=== PATIENT | female | born 1945 | race Caucasian/White ===

== ENCOUNTER 2020-06-12 11:45 | Inpatient (IN) | payer MEDICARE, BC ==
[~2020-06-12] VITALS: Ht 152.4 cm; Wt 67.1 kg
[~2020-06-12 11:45] MED LIST: DILT240C51 PO; FLEC100T2 PO; LEVO75TA PO; LOSA100T57 PO; RIVA15TA PO; SIMV-45 PO; TRAM50TA2 PO
[2020-06-14 13:15] LABS: BASOPHILS % (AUTO) 1.1 % (0-1); EOSINOPHILS # (AUTO) 0.1 X10'3 (0-0.9); EOSINOPHILS % (AUTO) 1.8 % (0-6); LYMPHOCYTES # (AUTO) 0.8 X10'3 (1.1-4.8); MEAN CORPUSCULAR HEMOGLOBIN 25.9 PG (27.0-31.0); MEAN CORPUSCULAR HGB CONC 31.6 g/dL (33.0-36.5); MEAN CORPUSCULAR VOLUME 82.2 FL (78-98); MEAN PLATELET VOLUME 8.1 FL (7.4-10.4); MONOCYTES # (AUTO) 0.3 X10'3 (0-0.9); MONOCYTES % (AUTO) 9.2 % (2-12); NEUTROPHILS # (AUTO) 2.4 X10'3 (1.8-7.7); NEUTROPHILS % (AUTO) 64.9 % (42-75); PRE OP HEMATOCRIT 23.1 % (35.0-45.0); PRE OP PLATELET COUNT 269 X10'3 (140-440); RED BLOOD COUNT 2.81 X10'6 (4.20-5.60); RED CELL DISTRIBUTION WIDTH 16.9 % (11.5-14.5)
[2020-06-14 13:17] LABS: PRE OP HEMOGLOBIN 7.3 g/dL (12.0-16.0)
[2020-06-14 13:35] LABS: ALANINE AMINOTRANSFERASE 13 U/L (12-78); ALBUMIN 3.2 G/DL (3.4-5.0); ALBUMIN/GLOBULIN RATIO 0.8 (1.1-1.5); ALKALINE PHOSPHATASE 76 IU/L (46-116); ANION GAP 11 (8-16); ASPARTATE AMINO TRANSFERASE 11 U/L (10-37); BILIRUBIN,TOTAL 0.4 MG/DL (0.1-1.0); BLOOD UREA NITROGEN 19 MG/DL (7-18); CALCIUM 8.9 MG/DL (8.5-10.1); CHLORIDE 109 MMOL/L (99-107); GLUCOSE 109 MG/DL (70-104); POTASSIUM 4.4 MMOL/L (3.5-5.1); SODIUM 143 MMOL/L (135-145); TOTAL CARBON DIOXIDE 23.4 MMOL/L (24-32); TOTAL PROTEIN 7.1 G/DL (6.4-8.2)
[2020-06-14 13:49] LABS: BUN/CREATININE RATIO 16.2 (6.6-38.0); CREATININE 1.17 MG/DL (0.40-0.90); eGFR 45 ML/MIN
[2020-06-14 15:36] LABS: ANISOCYTOSIS 1+; ELLIPTOCYTES 2+; PLATELET ESTIMATE NORMAL
[2020-06-14 15:37] LABS: SCHISTOCYTES FEW
[2020-06-19] VITALS (18 sets, daily range): BP systolic 113–169; BP diastolic 17–87
[2020-06-19] MEDS ORDERED: ringers solution, lacted 1,000 ML IV SCH ×2 (05:00→10:40)
[2020-06-19] MEDS ORDERED: tranexamic acid inj. 700 MG in normal saline 100ml IV soln 93 ML IV ONE ×2 (05:30→06:30)
[2020-06-19] MEDS ORDERED: famotidine 20mg tablet PO ONE (05:30)
[2020-06-19] MEDS ORDERED: VANCOMYCIN INJ 1000 MG in NORMAL SALINE 250ml IV.SOLN IV ONE (05:30)
[2020-06-19] MEDS ORDERED: tranexamic acid inj. 700 MG in normal saline 100ml IV soln 100 ML IV ONE ×3 (05:30→15:00)
[2020-06-19] MEDS ORDERED: MESSAGE TO NURSING IV ONE (06:00)
[2020-06-19 07:18] LABS: BASOPHILS # (AUTO) 0.1 X10'3 (0-0.2); BASOPHILS % (AUTO) 1.3 % (0-1); EOSINOPHILS # (AUTO) 0.1 X10'3 (0-0.9); EOSINOPHILS % (AUTO) 1.5 % (0-6); LYMPHOCYTES # (AUTO) 0.6 X10'3 (1.1-4.8); LYMPHOCYTES % (AUTO) 15.6 % (21-51); MEAN CORPUSCULAR HEMOGLOBIN 26.5 PG (27.0-31.0); MEAN CORPUSCULAR HGB CONC 32.4 g/dL (33.0-36.5); MEAN CORPUSCULAR VOLUME 81.6 FL (78-98); MEAN PLATELET VOLUME 8.4 FL (7.4-10.4); MONOCYTES # (AUTO) 0.4 X10'3 (0-0.9); MONOCYTES % (AUTO) 10.2 % (2-12); NEUTROPHILS # (AUTO) 2.7 X10'3 (1.8-7.7); NEUTROPHILS % (AUTO) 71.4 % (42-75); PRE OP HEMATOCRIT 22.5 % (35.0-45.0); PRE OP PLATELET COUNT 260 X10'3 (140-440); RED BLOOD COUNT 2.76 X10'6 (4.20-5.60); RED CELL DISTRIBUTION WIDTH 17.5 % (11.5-14.5)
[2020-06-19] MEDS ORDERED: clindamycin 600mg/D5W 50ml 50 ML IV ONE (07:20)
[2020-06-19 07:42] LABS: PRE OP HEMOGLOBIN 7.3 g/dL (12.0-16.0)
[2020-06-19] MEDS ORDERED: ketorolac trometh. 30mg/ml inj. ONE (08:24)
[2020-06-19] MEDS ORDERED: ROPIVAcaine 0.5% (5mg/ml) 30ml vial ONE (08:24)
[2020-06-19] MEDS ORDERED: sevoflurane 250ml liquid IH ONE (09:13)
[2020-06-19] MEDS ORDERED: fentaNYL /PF 50mcg/ml 5ml ampule ONE (09:23)
[2020-06-19] MEDS ORDERED: ondansetron/PF 4mg/2ml inj IV PRN ×2 (10:40→11:40)
[2020-06-19] MEDS ORDERED: morphine 2 MG/ML inj. syringe IV PRN (10:40)
[2020-06-19] MEDS ORDERED: HYDROmorphone inj. 0.5 MG/0.5 ML DISP.SYRIN IV PRN ×2 (10:40→11:40)
--- NOTE | 2020-06-19 11:35 | NUR ---
Received from OR via BED , accompanied by Anesthesiologist DR TAYLOR and report given by Anesthesiolgist. PATIENT WAKING UP, DENIES PAIN, V/S WNL, NEUROVASCULAR CHECKS INTACT, 20G PIV RUE , DRESSING TO LEFT SHOULDER CDI W/ COLD POWDER PACK AND SLING. F/C DRAINING CLEAR YELLOW URINE
[2020-06-19] MEDS ORDERED: bisacodyl 10mg suppository rectal RC PRN (11:40)
[2020-06-19] MEDS: potassium cl 20mEq in 1/2 NS 1,000 ML IV SCH ×2 (11:40→19:40)
[2020-06-19] MEDS ORDERED: acetaminophen 325mg tablet PO PRN (11:40)
[2020-06-19] MEDS ORDERED: diphenhydrAMINE 25mg capsule PO PRN ×2 (11:40)
[2020-06-19] MEDS ORDERED: magnesium hydroxide 30ml (MOM) UD suspension PO PRN (11:40)
[2020-06-19] MEDS ORDERED: dexamethasone sod phosphate 4mg/ml inj. ONE (11:42)
[2020-06-19] MEDS ORDERED: propofol inj 20 ML IV ONE (11:42)
[2020-06-19] MEDS ORDERED: neostigmine methylsulfate 1 MG/ML 10ml vial ONE (11:42)
[2020-06-19] MEDS ORDERED: LIDOcaine 2% (20mg/ml) 5ml vial ONE (11:42)
[2020-06-19] MEDS ORDERED: glycopyrrolate 0.2mg/ml inj ONE (11:42)
[2020-06-19] MEDS ORDERED: rocuronium 10mg/ml inj IV ONE (11:42)
[2020-06-19] MEDS ORDERED: ondansetron/PF 4mg/2ml inj ONE (11:42)
[2020-06-19 12:06] LABS: ISTAT CREATININE 1.1 mg/dL (0.6-1.1); ISTAT HGB 8.5 g/dl (12.0-16.0); ISTAT IONIZED CALCIUM 1.26 mmol/L (1.03-1.32); ISTAT K 4.1 mmol/L (3.5-5.1); POC BUN/CREATININE RATIO 13.6 (6.6-38.0)
[2020-06-19] MEDS: HYDROmorphone inj. 0.5 MG/0.5 ML DISP.SYRIN IV PRN ×2 (12:12→12:33)
--- NOTE | 2020-06-19 12:35 | NUR ---
PATIENT A&OX4, 5-6/10 PAIN SEE EMAR, V/S WNL, NEUROVASCULAR CHECKS INTACT, 20G PIV RUE , DRESSING TO LEFT SHOULDER CDI W/ COLD POWDER PACK AND SLING. F/C DRAINING CLEAR YELLOW URINE. . PATIENT TAKEN TO 4011B WITH ALL BELONGINGS AND HOOKED UP TO MONITORS IN ROOM AND REPORT GIVEN TO AUDIO VISUAL COORDINATOR WHO HAS TAKEN OVER PATIENT CARE.
[2020-06-19] MEDS: acetaminophen 325mg tablet PO SCH ×2 (12:51→20:53)
[2020-06-19] MEDS: oxyCODONE IR 5mg (immed. release) tablet PO PRN ×2 (12:52→21:38)
[2020-06-19] MEDS: traMADol 50MG tablet PO SCH ×2 (15:20→20:53)
[2020-06-19] MEDS: clindamycin 600mg/D5W 50ml 50 ML IV SCH ×2 (15:21→20:54)
[2020-06-19] MEDS ORDERED: vancomycin/NS 1 GM ADD-VANTAGE 250 ML IV SCH (20:00)
[2020-06-19] MEDS: flecainide 50mg tablet PO SCH (20:54)
[2020-06-19] MEDS ORDERED: atorvastatin 20mg tablet PO SCH (21:00)
[2020-06-19] MEDS ORDERED: sennosides 8.6mg tablet PO SCH (21:00)
[2020-06-20] MEDS: oxyCODONE IR 5mg (immed. release) tablet PO PRN ×2 (01:13→05:36)
[2020-06-20 02:00] VITALS: BP 150/69
[2020-06-20] MEDS: acetaminophen 325mg tablet PO SCH ×2 (02:12→07:30)
[2020-06-20] MEDS: traMADol 50MG tablet PO SCH ×2 (02:13→11:25)
[2020-06-20] MEDS: potassium cl 20mEq in 1/2 NS 1,000 ML IV SCH (03:40)
[2020-06-20 06:00] VITALS: BP 145/64
[2020-06-20 06:12] LABS: ANION GAP 10 (8-16); CHLORIDE 106 MMOL/L (99-107); SODIUM 138 MMOL/L (135-145)
[2020-06-20 06:13] LABS: BASOPHILS # (AUTO) 0.1 X10'3 (0-0.2); BASOPHILS % (AUTO) 1.3 % (0-1); EOSINOPHILS # (AUTO) 0.1 X10'3 (0-0.9); EOSINOPHILS % (AUTO) 0.9 % (0-6); LYMPHOCYTES # (AUTO) 0.8 X10'3 (1.1-4.8); LYMPHOCYTES % (AUTO) 9.1 % (21-51); MEAN CORPUSCULAR HEMOGLOBIN 26.7 PG (27.0-31.0); MEAN CORPUSCULAR HGB CONC 31.9 g/dL (33.0-36.5); MEAN CORPUSCULAR VOLUME 83.5 FL (78-98); MEAN PLATELET VOLUME 8.3 FL (7.4-10.4); MONOCYTES # (AUTO) 0.7 X10'3 (0-0.9); MONOCYTES % (AUTO) 8.6 % (2-12); NEUTROPHILS # (AUTO) 6.7 X10'3 (1.8-7.7); NEUTROPHILS % (AUTO) 80.1 % (42-75); PLATELET COUNT 271 X10'3 (140-440); RED CELL DISTRIBUTION WIDTH 17.2 % (11.5-14.5); WHITE BLOOD COUNT 8.3 X10'3 (4.5-11.0)
--- NOTE | 2020-06-20 06:27 | NUR ---
Received report from Yaa MONTANO
[2020-06-20 07:31] VITALS: BP_SYST 145
[2020-06-20] MEDS: flecainide 50mg tablet PO SCH (07:31)
[2020-06-20 07:36] LABS: TOTAL CELLS COUNTED 100
[2020-06-20 07:38] LABS: ANISOCYTOSIS 1+; PLATELET ESTIMATE NORMAL
[2020-06-20 07:51] LABS: ELLIPTOCYTES 2+; SCHISTOCYTES FEW
[2020-06-20 07:52] LABS: POLYCHROMASIA FEW
[2020-06-20] MEDS ORDERED: diltiazem CD 120mg capsule (once-daily) PO SCH (08:00)
[2020-06-20] MEDS ORDERED: rivaroxaban 15mg tablet PO SCH (08:00)
[2020-06-20] MEDS ORDERED: losartan 50mg tablet PO SCH (08:00)
[2020-06-20] MEDS ORDERED: levoTHYROXINE 75mcg tablet PO SCH (08:00)
--- NOTE | 2020-06-20 13:51 | NUR ---
Patient was discharged iv and tele was removed from patient. Patient left with . discharge instructions were given to patient.
[2020-06-21] MEDS ORDERED: acetaminophen 325mg tablet PO PRN (11:40)
--- NOTE | 2020-06-21 12:48 | NUR ---
Case Management DC follow up: spoke to pt via telephone. s/p: ORIF L proximal humerus. Reports:"feeling pretty good, still sore" Denies: acute/continuous CP, emergent SOB, resp distress, N/V, MCLEAN, blurry vision, vertigo, syncope episodes, weakness,emergent general pain, abd tenderness/distension, bladder pain, dysuria, polyuria, hematuria, retention, constipation, diarrhea, fever, unexplained bleeding, bruising. Verbalizes understanding of s/s that warrant 9-11/ER visit for further evaluation. Verbalizes understanding of Rx and why prescribed, resumes current Rx, taking as ordered, no ase r/t polypharmacy. Acknowledges need to schedule/keep follow up appts w/ PCP/Andreas, will call to schedule; Dr Cheung scheduled. [facility] pending. Verbalizes compliance w/DC aftercare. Needs met, questions answered at DC, no further questions or concerns at this time.
== END 2020-06-20 13:00 | disposition home health service (06) | DRG 493 ==
LOC: UNDOADMIN 06-19 05:33 → PAS IN 06-19 05:33 → EDSTATUS 06-19 08:15 → ORTHO 4S 06-19 11:40 → PAS IN 06-19 12:45
PROVIDERS: ADMIT Orthopaedic Surgery; ATTEND Orthopaedic Surgery
PROC: 30233N1 Transfusion of Nonautologous Red Blood Cells into Peripheral Vein, Percutaneous Approach (ICD-10-PCS; 2020-06-19)
PROC: 0PSG04Z Reposition Left Humeral Shaft with Internal Fixation Device, Open Approach (ICD-10-PCS; principal; 2020-06-19 09:13)
DX: S42.342A Displaced spiral fracture of shaft of humerus, left arm, initial encounter for closed fracture (principal); I48.20 Chronic atrial fibrillation, unspecified; D62 Acute posthemorrhagic anemia; E03.9 Hypothyroidism, unspecified; W06.XXXA Fall from bed, initial encounter; E78.5 Hyperlipidemia, unspecified; E66.9 Obesity, unspecified; I10 Essential (primary) hypertension; Z79.899 Other long term (current) drug therapy; Z79.01 Long term (current) use of anticoagulants; Z79.891 Long term (current) use of opiate analgesic; Z88.0 Allergy status to penicillin; Z68.28 Body mass index [BMI] 28.0-28.9, adult; Y93.89 Activity, other specified; Y92.89 Other specified places as the place of occurrence of the external cause; Y99.8 Other external cause status; Z03.818 Encounter for observation for suspected exposure to other biological agents ruled out
CPT/HCPCS: 36415; 71046; 73060; 76000; 80047; 80051; 80053; 82948; 84443; 85025; 86885; 86900; 86901; 86920; 87081; 93971; 97161; 97530; A4565; A4618; A6449; A7000; C1713; G0378; J1100; J1170; J1885; J2001; J2270; J2405; J2704; J2710; J2795; J3010; J3370; J3480; J3490; J7120; P9016

== ENCOUNTER 2023-11-05 03:55 | Inpatient (IN) | payer MEDICARE, BC ==
[~2023-11-05] VITALS: Ht 147.3 cm; Wt 54.5 kg
[~2023-11-05 03:55] MED LIST changes: -LOSA100T57 PO; +LOSA100T58 PO
[2023-11-05] MEDS ORDERED: normal saline 1000ml 1,000 ML IV ONE (04:20)
[2023-11-05] MEDS ORDERED: ondansetron/PF 4mg/2ml inj IV ONE (04:20)
[2023-11-05] MEDS ORDERED: morphine 4 MG/ML inj SYRINge IV ONE ×2 (04:20→06:00)
[2023-11-05 04:44] LABS: BILIRUBIN,URINE NEGATIVE (Neg); CLARITY,URINE SLIGHTLY CLOUDY (Clear); COLOR,URINE YELLOW (Yellow); GLUCOSE, URINE NEGATIVE (Neg); KETONES,URINE NEGATIVE (Neg); LEUKOCYTE ESTERASE ,URINE TRACE (Neg); NITRITES, URINE NEGATIVE (Neg); OCCULT BLOOD,URINE NEGATIVE (Neg); PROTEIN,URINE TRACE mg/dl (Neg); UROBILINOGEN,URINE 0.2 E.U/dL (0.2-1.0)
[2023-11-05 04:45] LABS: UA COLLECTION TYPE OTHER
[2023-11-05 04:54] LABS: MUCUS STRANDS NONE SEEN /LPF (Neg); SQUAMOUS EPITHELIAL CELL,UR MANY /LPF (FEW); TRANSITIONAL EPI CELLS,URINE MODERATE /HPF
[2023-11-05 04:56] LABS: BACTERIA,URINE 1+ /HPF (Neg); RBC,URINE 0-2 /HPF (0-2)
[2023-11-05 06:07] LABS: BASOPHILS % (AUTO) 0.7 % (0-1); EOSINOPHILS # (AUTO) 0.1 X10'3 (0-0.9); EOSINOPHILS % (AUTO) 1.7 % (0-6); HEMATOCRIT 27.2 % (35.0-45.0); HEMOGLOBIN 9.4 g/dl (12.0-16.0); LYMPHOCYTES # (AUTO) 0.5 X10'3 (1.1-4.8); LYMPHOCYTES % (AUTO) 11.8 % (21-51); MEAN CORPUSCULAR HEMOGLOBIN 33.4 PG (27.0-31.0); MEAN CORPUSCULAR HGB CONC 34.7 g/dL (33.0-36.5); MEAN CORPUSCULAR VOLUME 96.4 FL (78-98); MONOCYTES # (AUTO) 0.3 X10'3 (0-0.9); MONOCYTES % (AUTO) 7.4 % (2-12); NEUTROPHILS # (AUTO) 3.2 X10'3 (1.8-7.7); NEUTROPHILS % (AUTO) 78.4 % (42-75); PLATELET COUNT 127 X10'3 (140-440); RED BLOOD COUNT 2.82 X10'6 (4.20-5.60); RED CELL DISTRIBUTION WIDTH 17.3 % (11.5-14.5); WHITE BLOOD COUNT 4.1 X10'3 (4.5-11.0)
[2023-11-05 06:18] LABS: ALANINE AMINOTRANSFERASE 16 U/L (12-78); ALBUMIN 3.4 G/DL (3.4-5.0); ALKALINE PHOSPHATASE 65 IU/L (46-116); ANION GAP 9 (8-16); ASPARTATE AMINO TRANSFERASE 17 U/L (10-37); BILIRUBIN,TOTAL 0.4 MG/DL (0.1-1.0); BLOOD UREA NITROGEN 18 MG/DL (7-18); BUN/CREATININE RATIO 9.5 (10.0-20.0); CALCIUM 8.8 MG/DL (8.5-10.1); CHLORIDE 108 MMOL/L (99-107); CREATININE 1.89 MG/DL (0.40-0.90); GLUCOSE 95 MG/DL (70-104); POTASSIUM 3.4 MMOL/L (3.5-5.1); SODIUM 141 MMOL/L (135-145); TOTAL CARBON DIOXIDE 23.7 MMOL/L (24-32); TOTAL PROTEIN 6.7 G/DL (6.4-8.2); eCRCL 16 ML/MIN; eGFR 26 ML/MIN
[2023-11-05 06:19] LABS: APTT 30 SECONDS (22-32); INR 1.1 INR; PROTHROMBIN TIME 11.7 SECONDS (9.0-12.0)
[2023-11-05] MEDS ORDERED: mag hydrox/Alum hydrox/simeth 30ml oral suspension PO PRN (07:25)
[2023-11-05] MEDS ORDERED: acetaminophen 325mg tablet PO PRN (07:25)
[2023-11-05] MEDS ORDERED: magnesium 4gm in 100ml NS 100 ML IV PRN (07:25)
[2023-11-05] MEDS ORDERED: magnesium hydroxide 30ml (MOM) UD suspension PO PRN (07:25)
[2023-11-05] MEDS ORDERED: magnesium Cl slow-release 64mg tablet PO PRN (07:25)
[2023-11-05] MEDS ORDERED: morphine 2 MG/ML inj. syringe IV PRN (07:25)
[2023-11-05] MEDS ORDERED: potassium Cl 40MEQ/1/2NS 520ml 520 ML IV PRN (07:25)
[2023-11-05] MEDS ORDERED: ondansetron/PF 4mg/2ml inj IV PRN (07:25)
[2023-11-05] MEDS ORDERED: magnesium 2GM in 50ml NS 50 ML IV PRN (07:25)
[2023-11-05] MEDS ORDERED: potassium Cl 20 mEq SR tablet PO PRN (07:25)
[2023-11-05] MEDS: K and/or MAG REPLACEMENT MC SCH ×2 (08:00→20:28)
[2023-11-05] MEDS: docusate sod 100mg capsule PO SCH ×2 (08:00→20:32)
[2023-11-05] MEDS: dextrose 5%-1/2 normal saline 1,000 ML IV SCH ×2 (08:01→20:36)
[2023-11-05] MEDS: enoxaparin 40mg/0.4ml syringe SUBCUT SCH (08:07)
[2023-11-05 09:07] LABS: MAGNESIUM 1.8 MG/DL (1.5-2.4); POTASSIUM 3.3 MMOL/L (3.5-5.1)
[2023-11-05] MEDS: morphine 2 MG/ML inj. syringe IV PRN ×3 (12:54→21:39)
[2023-11-05] MEDS: potassium Cl 20 mEq SR tablet PO PRN (20:32)
[2023-11-05 22:45] VITALS: BP 197/80; PULSE 66; RESP 18; TEMP 99; O2SAT 99
[2023-11-05] MEDS ORDERED: losartan 25mg tablet PO ONE (22:55)
[2023-11-05 23:00] VITALS: RESP 16; O2SAT 99
[2023-11-06] VITALS (7 sets, daily range): BP systolic 115–184; BP diastolic 47–67; PULSE 49–59; RESP 14–56; TEMP 97–100.1; O2SAT 15–100
[2023-11-06] MEDS: morphine 4 MG/ML inj SYRINge IV PRN ×2 (00:39→04:02)
[2023-11-06 07:37] LABS: BASOPHILS % (AUTO) 0.7 % (0-1); EOSINOPHILS # (AUTO) 0.2 X10'3 (0-0.9); EOSINOPHILS % (AUTO) 4.6 % (0-6); HEMOGLOBIN 10.2 g/dl (12.0-16.0); LYMPHOCYTES # (AUTO) 0.8 X10'3 (1.1-4.8); LYMPHOCYTES % (AUTO) 18.9 % (21-51); MEAN CORPUSCULAR HEMOGLOBIN 33.2 PG (27.0-31.0); MEAN CORPUSCULAR VOLUME 97.8 FL (78-98); MEAN PLATELET VOLUME 8.6 FL (7.4-10.4); MONOCYTES # (AUTO) 0.3 X10'3 (0-0.9); NEUTROPHILS # (AUTO) 2.8 X10'3 (1.8-7.7); NEUTROPHILS % (AUTO) 67.8 % (42-75); PLATELET COUNT 123 X10'3 (140-440); RED BLOOD COUNT 3.07 X10'6 (4.20-5.60); RED CELL DISTRIBUTION WIDTH 17.3 % (11.5-14.5); WHITE BLOOD COUNT 4.2 X10'3 (4.5-11.0)
[2023-11-06] MEDS: enoxaparin 40mg/0.4ml syringe SUBCUT SCH (08:00)
[2023-11-06] MEDS: K and/or MAG REPLACEMENT MC SCH ×2 (08:00→20:00)
[2023-11-06 08:26] LABS: INR 1.1 INR; PROTHROMBIN TIME 12.1 SECONDS (9.0-12.0)
[2023-11-06] MEDS: potassium Cl 20 mEq SR tablet PO PRN ×2 (08:41→17:44)
[2023-11-06] MEDS: docusate sod 100mg capsule PO SCH ×2 (08:42→21:58)
[2023-11-06] MEDS: HYDROcodone/acetaminophen 10/325mg tab PO PRN ×4 (08:43→22:00)
[2023-11-06 09:35] LABS: ALANINE AMINOTRANSFERASE 16 U/L (12-78); ALBUMIN 3.1 G/DL (3.4-5.0); ALBUMIN/GLOBULIN RATIO 0.9 (1.1-1.5); ALKALINE PHOSPHATASE 61 IU/L (46-116); ANION GAP 13 (8-16); ASPARTATE AMINO TRANSFERASE 21 U/L (10-37); BILIRUBIN,TOTAL 0.4 MG/DL (0.1-1.0); BLOOD UREA NITROGEN 12 MG/DL (7-18); BUN/CREATININE RATIO 8.1 (10.0-20.0); CALCIUM 8.9 MG/DL (8.5-10.1); CHLORIDE 109 MMOL/L (99-107); CREATININE 1.49 MG/DL (0.40-0.90); FERRITIN 37 NG/ML (8-252); GLUCOSE 102 MG/DL (70-104); MAGNESIUM 1.8 MG/DL (1.5-2.4); SODIUM 141 MMOL/L (135-145); TOTAL PROTEIN 6.5 G/DL (6.4-8.2); eCRCL 20 ML/MIN; eGFR 34 ML/MIN
[2023-11-06 09:36] LABS: POTASSIUM 3.8 MMOL/L (3.5-5.1)
[2023-11-06] MEDS: losartan 50mg tablet PO SCH (10:09)
[2023-11-06] MEDS: flecainide 50mg tablet PO SCH ×2 (10:09→22:00)
[2023-11-06] MEDS: diltiazem CD 120mg capsule (once-daily) PO SCH (10:10)
[2023-11-06] MEDS: dextrose 5%-1/2 normal saline 1,000 ML IV SCH ×2 (10:11→22:04)
[2023-11-06 10:29] LABS: % IRON SATURATION 7 % (11-46); IRON 19 UG/DL (49-151); TOTAL IRON BINDING CAPACITY 276 UG/DL (259-388)
[2023-11-06] MEDS ORDERED: enoxaparin 30mg/0.3ml syringe SUBCUT ONE (12:00)
[2023-11-06] MEDS ORDERED: traMADol 50MG tablet PO SCH (14:00)
[2023-11-06] MEDS ORDERED: rivaroxaban 15mg tablet PO SCH (17:00)
[2023-11-06] MEDS: atorvastatin 20mg tablet PO SCH (22:00)
[2023-11-07] VITALS (24 sets, daily range): BP systolic 85–181; BP diastolic 46–76; PULSE 45–78; RESP 9–16; TEMP 97.5–98.4; O2SAT 94–100
[2023-11-07 07:15] LABS: BASOPHILS % (AUTO) 0.8 % (0-1); EOSINOPHILS # (AUTO) 0.2 X10'3 (0-0.9); HEMATOCRIT 30.1 % (35.0-45.0); HEMOGLOBIN 10.1 g/dl (12.0-16.0); LYMPHOCYTES # (AUTO) 0.7 X10'3 (1.1-4.8); LYMPHOCYTES % (AUTO) 16.9 % (21-51); MEAN CORPUSCULAR HGB CONC 33.6 g/dL (33.0-36.5); MONOCYTES # (AUTO) 0.4 X10'3 (0-0.9); MONOCYTES % (AUTO) 9.1 % (2-12); NEUTROPHILS # (AUTO) 2.7 X10'3 (1.8-7.7); NEUTROPHILS % (AUTO) 68.2 % (42-75); PLATELET COUNT 140 X10'3 (140-440); RED BLOOD COUNT 3.07 X10'6 (4.20-5.60); RED CELL DISTRIBUTION WIDTH 17.9 % (11.5-14.5)
[2023-11-07 07:20] LABS: INR 1.1 INR; PROTHROMBIN TIME 12.2 SECONDS (9.0-12.0)
[2023-11-07 07:25] LABS: ALANINE AMINOTRANSFERASE 11 U/L (12-78); ALBUMIN 2.8 G/DL (3.4-5.0); ALBUMIN/GLOBULIN RATIO 0.8 (1.1-1.5); ALKALINE PHOSPHATASE 66 IU/L (46-116); ANION GAP 7 (8-16); ASPARTATE AMINO TRANSFERASE 23 U/L (10-37); BILIRUBIN,TOTAL 0.5 MG/DL (0.1-1.0); BLOOD UREA NITROGEN 14 MG/DL (7-18); CALCIUM 8.5 MG/DL (8.5-10.1); CHLORIDE 108 MMOL/L (99-107); CREATININE 1.55 MG/DL (0.40-0.90); GLUCOSE 106 MG/DL (70-104); MAGNESIUM 1.6 MG/DL (1.5-2.4); SODIUM 138 MMOL/L (135-145); TOTAL CARBON DIOXIDE 22.7 MMOL/L (24-32); TOTAL PROTEIN 6.3 G/DL (6.4-8.2); eCRCL 19 ML/MIN; eGFR 32 ML/MIN
[2023-11-07] MEDS: K and/or MAG REPLACEMENT MC SCH ×2 (08:00→20:00)
[2023-11-07] MEDS: HYDROcodone/acetaminophen 10/325mg tab PO PRN ×2 (08:28→13:52)
[2023-11-07] MEDS: diltiazem CD 120mg capsule (once-daily) PO SCH (08:28)
[2023-11-07] MEDS: levoTHYROXINE 75mcg tablet PO SCH (08:29)
[2023-11-07] MEDS: flecainide 50mg tablet PO SCH ×2 (08:29→20:49)
[2023-11-07] MEDS: docusate sod 100mg capsule PO SCH ×2 (08:29→20:49)
[2023-11-07] MEDS: losartan 50mg tablet PO SCH (08:29)
[2023-11-07] MEDS: dextrose 5%-1/2 normal saline 1,000 ML IV SCH ×2 (12:45→22:42)
[2023-11-07] MEDS ORDERED: vancomycin 1,000mg inj ONE (13:59)
[2023-11-07] MEDS ORDERED: morphine 4 MG/ML inj SYRINge IV PRN (14:20)
[2023-11-07] MEDS ORDERED: acetaminophen 1,000mg/100ml IV 100 ML IV ONE (14:20)
[2023-11-07] MEDS ORDERED: labetalol 20mg/4ml (5mg/ml) syringe IV PRN (14:20)
[2023-11-07] MEDS ORDERED: hydrALAZINE 20mg/ml inj. IV PRN (14:20)
[2023-11-07] MEDS ORDERED: ringers solution, lacted 1,000 ML IV SCH (14:20)
[2023-11-07] MEDS ORDERED: morphine 2 MG/ML inj. syringe IV PRN (14:20)
[2023-11-07] MEDS ORDERED: HYDROmorphone/PF 0.2 MG/ML SYRINGE IV PRN (14:20)
[2023-11-07] MEDS ORDERED: proCHLORperazine 10 MG/2 ml inj IV PRN (14:20)
[2023-11-07] MEDS ORDERED: ondansetron/PF 4mg/2ml inj IV PRN (14:20)
[2023-11-07] MEDS ORDERED: fentaNYL/PF 50MCG/1 ML 2ML syringe ONE (15:03)
[2023-11-07] MEDS ORDERED: midazolam 1 mg/ML 2ml injection ONE (15:04)
[2023-11-07] MEDS ORDERED: sevoflurane 250ml liquid IH ONE (15:07)
[2023-11-07] MEDS ORDERED: tranexamic acid 100mg/ml inj. ONE (15:24)
[2023-11-07] MEDS ORDERED: ROPIVAcaine 0.5% (5mg/ml) 30ml vial ONE ×2 (15:54)
[2023-11-07] MEDS ORDERED: LIDOcaine 2% (20mg/ml) 5ml vial ONE (15:54)
[2023-11-07] MEDS ORDERED: ePHEDrine 50MG/ML INJ. ONE (15:54)
[2023-11-07] MEDS ORDERED: dexamethasone sod phosphate 4mg/ml inj. ONE (15:54)
[2023-11-07] MEDS ORDERED: phenylephrine 10mg/ml inj. -priapism dosing ONE (15:54)
[2023-11-07] MEDS ORDERED: ceFAZolin 1000mg inj ONE ×2 (15:54)
[2023-11-07] MEDS ORDERED: propofol inj 20 ML IV ONE (15:55)
[2023-11-07] MEDS ORDERED: 0.9 % SODIUM CHLORIDE 10 ML VIAL ONE (15:55)
[2023-11-07] MEDS ORDERED: ondansetron/PF 4mg/2ml inj ONE (15:56)
[2023-11-07] MEDS ORDERED: glycopyrrolate 0.2mg/ml inj ONE ×2 (16:00→16:19)
[2023-11-07] MEDS ORDERED: BUPIVAcaine 2.5mg/ml inj 50ml vial (contains preservative) ONE (16:19)
[2023-11-07] MEDS ORDERED: BUPIVAcaine 2.5mg/ml inj 50ml vial (contains preservative) SQ ONE (16:40)
[2023-11-07] MEDS: HYDROmorphone/PF 0.2 MG/ML SYRINGE IV PRN ×2 (17:12→17:32)
[2023-11-07] MEDS: HYDROcodone/acetaminophen 5mg/325mg tablet PO PRN (18:11)
[2023-11-07] MEDS: atorvastatin 20mg tablet PO SCH (20:49)
[2023-11-08] VITALS (7 sets, daily range): BP systolic 107–134; BP diastolic 50–61; PULSE 52–70; RESP 12–16; TEMP 97.3–98.3; O2SAT 96–100
[2023-11-08 06:15] LABS: ALANINE AMINOTRANSFERASE 11 U/L (12-78); ALBUMIN 2.6 G/DL (3.4-5.0); ALBUMIN/GLOBULIN RATIO 0.7 (1.1-1.5); ALKALINE PHOSPHATASE 64 IU/L (46-116); ANION GAP 9 (8-16); ASPARTATE AMINO TRANSFERASE 14 U/L (10-37); BILIRUBIN,TOTAL 0.3 MG/DL (0.1-1.0); BLOOD UREA NITROGEN 15 MG/DL (7-18); BUN/CREATININE RATIO 9.9 (10.0-20.0); CALCIUM 8.9 MG/DL (8.5-10.1); CHLORIDE 105 MMOL/L (99-107); CREATININE 1.51 MG/DL (0.40-0.90); GLUCOSE 181 MG/DL (70-104); MAGNESIUM 1.4 MG/DL (1.5-2.4); POTASSIUM 3.8 MMOL/L (3.5-5.1); SODIUM 136 MMOL/L (135-145); TOTAL CARBON DIOXIDE 21.7 MMOL/L (24-32); TOTAL PROTEIN 6.2 G/DL (6.4-8.2); eCRCL 20 ML/MIN; eGFR 33 ML/MIN
[2023-11-08 06:20] LABS: BASOPHILS % (AUTO) 0 % (0-1); EOSINOPHILS % (AUTO) 0.1 % (0-6); HEMOGLOBIN 9.6 g/dl (12.0-16.0); LYMPHOCYTES # (AUTO) 0.2 X10'3 (1.1-4.8); LYMPHOCYTES % (AUTO) 4.2 % (21-51); MEAN CORPUSCULAR HEMOGLOBIN 33.4 PG (27.0-31.0); MEAN CORPUSCULAR HGB CONC 34.4 g/dL (33.0-36.5); MEAN PLATELET VOLUME 8.8 FL (7.4-10.4); MONOCYTES # (AUTO) 0.1 X10'3 (0-0.9); MONOCYTES % (AUTO) 2.5 % (2-12); NEUTROPHILS # (AUTO) 5.2 X10'3 (1.8-7.7); NEUTROPHILS % (AUTO) 93.2 % (42-75); PLATELET COUNT 168 X10'3 (140-440); RED BLOOD COUNT 2.89 X10'6 (4.20-5.60); RED CELL DISTRIBUTION WIDTH 17.1 % (11.5-14.5); WHITE BLOOD COUNT 5.6 X10'3 (4.5-11.0)
[2023-11-08] MEDS: cefazolin 2gm/D5W 100mL 100 ML IV SCH ×3 (08:00→16:07)
[2023-11-08] MEDS: K and/or MAG REPLACEMENT MC SCH ×2 (08:00→20:00)
[2023-11-08] MEDS: flecainide 50mg tablet PO SCH ×2 (08:50→19:47)
[2023-11-08] MEDS: docusate sod 100mg capsule PO SCH ×2 (08:50→19:47)
[2023-11-08] MEDS: losartan 50mg tablet PO SCH (08:50)
[2023-11-08] MEDS: diltiazem CD 120mg capsule (once-daily) PO SCH (08:50)
[2023-11-08] MEDS: levoTHYROXINE 75mcg tablet PO SCH (08:51)
[2023-11-08] MEDS: HYDROcodone/acetaminophen 10/325mg tab PO PRN ×2 (08:51→17:54)
[2023-11-08] MEDS: dextrose 5%-1/2 normal saline 1,000 ML IV SCH (15:58)
[2023-11-08] MEDS: atorvastatin 20mg tablet PO SCH (21:00)
[2023-11-09] MEDS: dextrose 5%-1/2 normal saline 1,000 ML IV SCH (00:27)
[2023-11-09] MEDS: acetaminophen 325mg tablet PO PRN ×2 (02:15→20:22)
[2023-11-09 06:00] VITALS: BP 160/66; PULSE 82; RESP 17; TEMP 97.7; O2SAT 99
[2023-11-09 06:09] LABS: BASOPHILS % (AUTO) 0 % (0-1); EOSINOPHILS % (AUTO) 0 % (0-6); HEMATOCRIT 26.1 % (35.0-45.0); HEMOGLOBIN 9.2 g/dl (12.0-16.0); LYMPHOCYTES # (AUTO) 0.5 X10'3 (1.1-4.8); LYMPHOCYTES % (AUTO) 5.3 % (21-51); MEAN CORPUSCULAR HEMOGLOBIN 33.8 PG (27.0-31.0); MEAN CORPUSCULAR HGB CONC 35.2 g/dL (33.0-36.5); MEAN CORPUSCULAR VOLUME 95.9 FL (78-98); MEAN PLATELET VOLUME 8.2 FL (7.4-10.4); MONOCYTES # (AUTO) 0.7 X10'3 (0-0.9); MONOCYTES % (AUTO) 7.3 % (2-12); NEUTROPHILS # (AUTO) 8.5 X10'3 (1.8-7.7); NEUTROPHILS % (AUTO) 87.4 % (42-75); PLATELET COUNT 202 X10'3 (140-440); RED BLOOD COUNT 2.72 X10'6 (4.20-5.60); RED CELL DISTRIBUTION WIDTH 17.2 % (11.5-14.5); WHITE BLOOD COUNT 9.7 X10'3 (4.5-11.0)
[2023-11-09 06:36] LABS: ALANINE AMINOTRANSFERASE 9 U/L (12-78); ALBUMIN 2.6 G/DL (3.4-5.0); ALBUMIN/GLOBULIN RATIO 0.7 (1.1-1.5); ALKALINE PHOSPHATASE 60 IU/L (46-116); ANION GAP 11 (8-16); ASPARTATE AMINO TRANSFERASE 17 U/L (10-37); BILIRUBIN,TOTAL 0.2 MG/DL (0.1-1.0); BLOOD UREA NITROGEN 22 MG/DL (7-18); BUN/CREATININE RATIO 14.5 (10.0-20.0); CALCIUM 9.4 MG/DL (8.5-10.1); CHLORIDE 106 MMOL/L (99-107); CREATININE 1.52 MG/DL (0.40-0.90); GLUCOSE 120 MG/DL (70-104); MAGNESIUM 1.5 MG/DL (1.5-2.4); POTASSIUM 4.3 MMOL/L (3.5-5.1); SODIUM 138 MMOL/L (135-145); TOTAL CARBON DIOXIDE 20.9 MMOL/L (24-32); TOTAL PROTEIN 6.1 G/DL (6.4-8.2); eCRCL 20 ML/MIN; eGFR 33 ML/MIN
[2023-11-09] MEDS: flecainide 50mg tablet PO SCH ×2 (07:02→20:21)
[2023-11-09] MEDS: HYDROcodone/acetaminophen 10/325mg tab PO PRN (07:02)
[2023-11-09] MEDS: diltiazem CD 120mg capsule (once-daily) PO SCH (07:02)
[2023-11-09] MEDS: docusate sod 100mg capsule PO SCH ×2 (07:06→20:21)
[2023-11-09] MEDS ORDERED: magnesium 2GM in 50ml NS 50 ML IV PRN (07:10)
[2023-11-09] MEDS ORDERED: magnesium Cl slow-release 64mg tablet PO PRN (07:10)
[2023-11-09] MEDS ORDERED: magnesium 4gm in 100ml NS 100 ML IV PRN (07:10)
[2023-11-09] MEDS: K and/or MAG REPLACEMENT MC SCH ×2 (07:48→20:00)
[2023-11-09 10:00] VITALS: BP 167/59; PULSE 66; RESP 14; TEMP 97.5; O2SAT 91
[2023-11-09 10:10] VITALS: BP 167/61
[2023-11-09] MEDS: levoTHYROXINE 75mcg tablet PO SCH (12:56)
[2023-11-09] MEDS: losartan 50mg tablet PO SCH (12:57)
[2023-11-09] MEDS ORDERED: ondansetron 4mg rapidly disintigrating tab PO PRN (14:20)
[2023-11-09 18:00] VITALS: BP 173/65; PULSE 66; RESP 18; TEMP 97.6; O2SAT 100
[2023-11-09] MEDS: atorvastatin 20mg tablet PO SCH (20:21)
[2023-11-10] VITALS (7 sets, daily range): BP systolic 104–167; BP diastolic 51–85; PULSE 55–86; RESP 14–18; TEMP 97.7–98.8; O2SAT 97–99
[2023-11-10 06:07] LABS: BASOPHILS % (AUTO) 0.2 % (0-1); EOSINOPHILS % (AUTO) 0.7 % (0-6); HEMATOCRIT 25.9 % (35.0-45.0); HEMOGLOBIN 8.9 g/dl (12.0-16.0); LYMPHOCYTES # (AUTO) 0.8 X10'3 (1.1-4.8); LYMPHOCYTES % (AUTO) 12.5 % (21-51); MEAN CORPUSCULAR HEMOGLOBIN 32.9 PG (27.0-31.0); MEAN CORPUSCULAR HGB CONC 34.2 g/dL (33.0-36.5); MEAN CORPUSCULAR VOLUME 96.2 FL (78-98); MEAN PLATELET VOLUME 8.3 FL (7.4-10.4); MONOCYTES # (AUTO) 0.7 X10'3 (0-0.9); MONOCYTES % (AUTO) 10.2 % (2-12); NEUTROPHILS # (AUTO) 5.1 X10'3 (1.8-7.7); NEUTROPHILS % (AUTO) 76.4 % (42-75); PLATELET COUNT 188 X10'3 (140-440); RED BLOOD COUNT 2.69 X10'6 (4.20-5.60); RED CELL DISTRIBUTION WIDTH 17.3 % (11.5-14.5); WHITE BLOOD COUNT 6.6 X10'3 (4.5-11.0)
[2023-11-10 06:35] LABS: ALANINE AMINOTRANSFERASE 8 U/L (12-78); ALBUMIN 2.5 G/DL (3.4-5.0); ALBUMIN/GLOBULIN RATIO 0.7 (1.1-1.5); ALKALINE PHOSPHATASE 61 IU/L (46-116); ANION GAP 9 (8-16); ASPARTATE AMINO TRANSFERASE 29 U/L (10-37); BILIRUBIN,TOTAL 0.4 MG/DL (0.1-1.0); BLOOD UREA NITROGEN 19 MG/DL (7-18); BUN/CREATININE RATIO 14.6 (10.0-20.0); CALCIUM 9.3 MG/DL (8.5-10.1); CHLORIDE 106 MMOL/L (99-107); GLUCOSE 106 MG/DL (70-104); SODIUM 138 MMOL/L (135-145); TOTAL PROTEIN 6.1 G/DL (6.4-8.2); eCRCL 23 ML/MIN; eGFR 40 ML/MIN
[2023-11-10] MEDS: levoTHYROXINE 75mcg tablet PO SCH (08:05)
[2023-11-10] MEDS: diltiazem CD 120mg capsule (once-daily) PO SCH (08:06)
[2023-11-10] MEDS: docusate sod 100mg capsule PO SCH ×2 (08:06→20:09)
[2023-11-10] MEDS: losartan 50mg tablet PO SCH (08:06)
[2023-11-10] MEDS: flecainide 50mg tablet PO SCH ×2 (08:07→20:09)
[2023-11-10] MEDS ORDERED: lactulose 20gm/30ml cup PO ONE (09:30)
[2023-11-10] MEDS: acetaminophen 325mg tablet PO PRN (10:31)
[2023-11-10] MEDS ORDERED: HYDROcodone/acetaminophen 5mg/325mg tablet PO ONE (11:45)
[2023-11-10] MEDS: HYDROcodone/acetaminophen 5mg/325mg tablet PO PRN (12:06)
[2023-11-10] MEDS ORDERED: rivaroxaban 15mg tablet PO ONE (12:20)
[2023-11-10] MEDS ORDERED: traMADol 50MG tablet PO PRN ×2 (16:50)
[2023-11-10] MEDS ORDERED: traMADol 50MG tablet PO ONE (16:50)
[2023-11-10] MEDS ORDERED: JUVEN Smoothie Arginine/Glut./Ca2+Bmb (Juven 19.3pkt) 240ml cup PO SCH (17:30)
[2023-11-10] MEDS: atorvastatin 20mg tablet PO SCH (20:09)
[2023-11-11 06:24] VITALS: BP 133/58; PULSE 58; RESP 14; TEMP 97.5; O2SAT 98
[2023-11-11 08:12] VITALS: BP 138/51; PULSE 64
[2023-11-11] MEDS: flecainide 50mg tablet PO SCH (08:12)
[2023-11-11] MEDS: diltiazem CD 120mg capsule (once-daily) PO SCH (08:12)
[2023-11-11] MEDS: losartan 50mg tablet PO SCH (08:12)
[2023-11-11] MEDS: docusate sod 100mg capsule PO SCH (08:12)
[2023-11-11] MEDS: levoTHYROXINE 75mcg tablet PO SCH (08:13)
[2023-11-11 10:00] VITALS: BP 144/63; PULSE 56; RESP 14; TEMP 97.7; O2SAT 100
[2023-11-11] MEDS ORDERED: lactulose 20gm/30ml cup PO ONE (10:15)
[2023-11-11 10:16] VITALS: RESP 18
[2023-11-11] MEDS ORDERED: rivaroxaban 15mg tablet PO SCH (18:00)
== END 2023-11-11 10:22 | DRG 521 ==
LOC: ER 03:56 → ED HOLD 07:31 → ORTHO 4S 22:30
PROVIDERS: ADMIT Internal Medicine; ATTEND Internal Medicine
PROC: 0SRR0JA Replacement of Right Hip Joint, Femoral Surface with Synthetic Substitute, Uncemented, Open Approach (ICD-10-PCS; principal; 2023-11-07 15:07)
DX: S72.091A Other fracture of head and neck of right femur, initial encounter for closed fracture (principal); N17.0 Acute kidney failure with tubular necrosis; D64.9 Anemia, unspecified; E03.9 Hypothyroidism, unspecified; E78.5 Hyperlipidemia, unspecified; F03.A0 Unspecified dementia, mild, without behavioral disturbance, psychotic disturbance, mood disturbance, and anxiety; I10 Essential (primary) hypertension; I25.10 Atherosclerotic heart disease of native coronary artery without angina pectoris; I48.91 Unspecified atrial fibrillation; M19.09 Primary osteoarthritis, other specified site; W01.0XXA Fall on same level from slipping, tripping and stumbling without subsequent striking against object, initial encounter; Y93.89 Activity, other specified; Y92.89 Other specified places as the place of occurrence of the external cause; Y99.8 Other external cause status; Z79.01 Long term (current) use of anticoagulants; Z88.0 Allergy status to penicillin; Z80.9 Family history of malignant neoplasm, unspecified; Z91.013 Allergy to seafood; Z88.8 Allergy status to other drugs, medicaments and biological substances; Z90.49 Acquired absence of other specified parts of digestive tract; Z90.710 Acquired absence of both cervix and uterus
CPT/HCPCS: 36415; 70450; 71045; 72125; 72192; 73501; 80053; 81001; 82607; 82728; 83540; 83550; 83735; 84132; 84443; 85025; 85610; 85730; 86885; 86900; 86901; 87081; 93005; 93306; 97116; 97161; 97530; 99285; A4314; A4333; A4615; A4618; A6446; A7000; C1776; G0378; J0131; J0690; J1100; J1170; J1650; J2250; J2270; J2370; J2405; J2704; J2795; J3010; J3370; J3490; J7030; J7120

== ENCOUNTER 2023-12-29 19:04 | Emergency (ER) | payer MEDICARE, BC ==
[~2023-12-29] VITALS: Ht 152.4 cm; Wt 57.0 kg
[~2023-12-29 19:04] MED LIST changes: +LEVO75TA7 PO
[2023-12-29 19:28] VITALS: BP 173/75; PULSE 58; TEMP 99.3; O2SAT 100
[2023-12-29 21:10] VITALS: RESP 15
== END 2023-12-29 22:49 | disposition home or self-care (01) ==
LOC: ER 19:04
DX: T18.108A Unspecified foreign body in esophagus causing other injury, initial encounter (principal); I10 Essential (primary) hypertension; Z88.0 Allergy status to penicillin; Z91.041 Radiographic dye allergy status; Z91.013 Allergy to seafood; Z79.899 Other long term (current) drug therapy; Z90.49 Acquired absence of other specified parts of digestive tract; W44.9XXA Unspecified foreign body entering into or through a natural orifice, initial encounter; Y93.89 Activity, other specified; Y92.89 Other specified places as the place of occurrence of the external cause; Y99.8 Other external cause status
CPT/HCPCS: 70360; 71045; 99284